=== PATIENT | male | born 1980 | race Caucasian/White ===

== ENCOUNTER 2018-09-21 19:28 | Emergency (ER) | payer BC ==
[2018-09-21] MEDS: ONDANSETRON (ODT) 4 MG TAB ODT (20:59)
[2018-09-21] MEDS: DICYCLOMINE 10 MG CAP PO (20:59)
[2018-09-21] MEDS: IBUPROFEN 600 MG TAB PO (20:59)
[2018-09-21] MEDS: ACETAMINOPHEN 325 MG TAB PO (21:00)
== END 2018-09-21 21:31 | disposition home or self-care (01) ==
LOC: FTE 19:28
DX: A08.4 Viral intestinal infection, unspecified (principal)
CPT/HCPCS: 99283